=== PATIENT | female | born 1975 | race Caucasian/White ===

== ENCOUNTER 2021-10-31 12:56 | Outpatient (RCR) | payer BC, SELFPAY | END 2021-11-15 23:59 | LOC: DC 12:56 | DX: E11.65 Type 2 diabetes mellitus with hyperglycemia (principal) | CPT/HCPCS: G0108 ==

== ENCOUNTER 2021-12-05 12:55 | Outpatient (RCR) | payer BC, SELFPAY | END 2021-12-16 23:59 | LOC: DC 12:55 | DX: E11.65 Type 2 diabetes mellitus with hyperglycemia (principal) | CPT/HCPCS: 97802 ==

== ENCOUNTER 2022-01-08 13:00 | Outpatient (RCR) | payer BC, SELFPAY | END 2022-01-16 23:59 | LOC: DC 13:00 | DX: E11.9 Type 2 diabetes mellitus without complications (principal) | CPT/HCPCS: 97803; G0108 ==